=== PATIENT | female | born 1970 | race Caucasian/White ===

== ENCOUNTER → 2024-05-17 06:50 | Outpatient (REF) | payer OTHER, SELFPAY | LOC: HWRAD 06:50 | PROVIDERS: ATTENDING PHYSICIAN Nurse Practitioner Family; FAMILY PHYSICIAN Student in an Organized Health Care Education/Training Program | DX: E04.2 Nontoxic multinodular goiter (principal) | CPT/HCPCS: 76536 ==

== ENCOUNTER → 2024-08-16 16:31 | Outpatient (REF) | payer OTHER, SELFPAY | LOC: WDC 16:31 | PROVIDERS: ATTENDING PHYSICIAN Obstetrics & Gynecology; FAMILY PHYSICIAN Student in an Organized Health Care Education/Training Program | DX: Z12.31 Encounter for screening mammogram for malignant neoplasm of breast (principal) | CPT/HCPCS: 77063; 77067 ==

== ENCOUNTER → 2025-01-14 07:02 | Outpatient (REF) | payer OTHER, SELFPAY | LOC: PAVMRI 07:02 | PROVIDERS: ATTENDING PHYSICIAN Orthopaedic Surgery; FAMILY PHYSICIAN Student in an Organized Health Care Education/Training Program | DX: M25.521 Pain in right elbow (principal) | CPT/HCPCS: 73221 ==

== ENCOUNTER 2025-04-06 16:00 | Outpatient (RCR) | payer OTHER, SELFPAY | END 2025-04-06 19:51 | disposition home or self-care (01) | LOC: RPT 16:00 | PROVIDERS: ATTENDING PHYSICIAN Orthopaedic Surgery | DX: M25.521 Pain in right elbow (principal); Z73.6 Limitation of activities due to disability | CPT/HCPCS: 97110; 97140; 97162; 97530 ==

== ENCOUNTER 2025-05-02 17:07 | Outpatient (RCR) | payer OTHER, SELFPAY | END 2025-05-03 11:07 | disposition home or self-care (01) | LOC: RPT 17:07 | PROVIDERS: ATTENDING PHYSICIAN Orthopaedic Surgery | DX: M25.521 Pain in right elbow (principal); Z73.6 Limitation of activities due to disability; M62.81 Muscle weakness (generalized) | CPT/HCPCS: 97110; 97140 ==

== ENCOUNTER → 2025-05-13 13:02 | Outpatient (REF) | payer OTHER, SELFPAY | LOC: PAVMRI 13:02 | PROVIDERS: ATTENDING PHYSICIAN Orthopaedic Surgery Hand Surgery; FAMILY PHYSICIAN Family Medicine | DX: M25.511 Pain in right shoulder (principal) | CPT/HCPCS: 73221 ==

== ENCOUNTER 2025-07-25 17:56 | Emergency (ER) | payer OTHER, SELFPAY ==
[2025-07-25 18:01] VITALS: BP 157/93
[2025-07-25 18:24] LABS: Hematocrit 41.6 % (37.0-47.0); Hemoglobin 13.6 g/dL (12.0-16.0); Mean Corp Hgb Conc. 32.7 g/dL (33.0-37.0); Mean Corpuscular Volume 86.5 fL (81.0-99.0); Nucleated Red Blood Cells % 0 %; Platelet Count 249 10^3/uL (130-400); Red Cell Dist. Width 13.0 % (11.5-14.5)
[2025-07-25 18:46] LABS: ALT (SGPT) 14 U/L (0-35); AST (SGOT) 27 U/L (14-36); Albumin 4.6 g/dl (3.5-5.0); Alkaline Phosphatase 115 U/L (38-126); Blood Urea Nitrogen 22 mg/dl (7-17); Calcium 9.8 mg/dl (8.4-10.2); Carbon Dioxide 30 mmol/L (22-30); Chloride 101 mmol/L (98-107); Glucose 94 mg/dl (70-99); Potassium 4.4 mmol/L (3.5-5.1); Sodium 135 mmol/L (135-145); Total Protein 7.7 g/dl (6.3-8.2); eGFR > 60.00
[2025-07-25 19:00] LABS: Troponin I < 0.012 ng/ml
[2025-07-25 23:08] VITALS: BMI 29.1
[2025-07-25 23:18] VITALS: BP 138/78
[2025-07-26] VITALS: BP 127/72
[2025-07-26] MEDS: CARAFATE SUSPENSION 1 GM PO (00:35)
[2025-07-26] MEDS: NSS 1000 IV (00:40)
[2025-07-26 00:46] LABS: D-Dimer 0.56 ug/mlFEU (0.00-0.50)
[2025-07-26 00:59] LABS: Troponin I < 0.012 ng/ml
[2025-07-26 01:00] VITALS: BP 142/77
[2025-07-26 01:27] VITALS: BP 148/73
--- NOTE | 2025-07-26 03:05 | DOWNTIME ---
There was a [employer] Private Client Advisor Downtime on 07/26/2025 from 0100 to 07/26/2025 at 0255. Downtime documentation of patient's care, including medication administrations, has been reconciled in the electronic record per guidelines. Refer to the
patient's paper chart under the miscellaneous tab to see printed paper medication records and downtime forms.
--- NOTE | 2025-07-26 03:23 | ED.GENMED ---
History of Present Illness
General
Chief Complaint: Chest Pain
Source: patient
Exam Limitations: none
Time Seen by Provider: 07/25/25 23:30
Nursing documentation reviewed up to this point in time: agreed with
History of Present Illness
History of Present Illness:
Note:
CHIEF COMPLAINT(S)
Intermittent chest pain.
HISTORY OF PRESENT ILLNESS
The patient is a 55-year-old female who presents with complaints of intermittent chest pain. She describes the pain as internal, not associated with palpation, and not exacerbated by physical activity. The pain initially occurred last week,
subsided, but then recurred over the past couple of days. It does not disturb her sleep at night and is described as a constant sensation when it occurs. The patient denies any exacerbations with deep inspirations and has noted no specific triggers.
The patient initially suspected it might be heartburn, which she notes she has experienced for a few months, starting earlier in the summer. At present, she reports discomfort while laying down and having an empty stomach since lunchtime.
The patient has a family history of esophageal cancer in her father and a recent stroke at age 82. Her past workup for similar chest discomfort at an urgent care visit, including an electrocardiogram (EKG), was unremarkable.
PAST MEDICAL AND SURGICAL HISTORY
The patient reports no significant past medical or surgical history.
SOCIAL HISTORY
The patient denies smoking, excessive alcohol consumption, and illicit drug use. 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
MEDICATIONS
The patient reports no current medications taken on a daily basis.
PHYSICAL EXAM
General: Alert, no acute distress.
Skin: Warm, dry.
Head: Normocephalic, atraumatic.
Neck: Supple, trachea midline.
Eyes, Ears, Nose, Mouth, and Throat: Oral mucosa moist.
Cardiovascular: Normal peripheral perfusion, No edema.
Respiratory: Respirations are non-labored.
Gastrointestinal: Abdomen nondistended.
Back: Normal range of motion, Normal alignment.
Musculoskeletal: Normal range of motion, normal strength.
Neurological: Alert and oriented to person, place, time, and situation, No focal neurological deficit observed.
Psychiatric: Cooperative, appropriate mood & affect.
PROBLEM LIST
Acute: Intermittent chest pain
Chronic: None mentioned
PLAN
1. Repeat cardiac enzyme tests and EKG.
2. Perform D-Dimer test to rule out the possibility of a blood clot, with the understanding that a negative result indicates no clot while a positive result requires further evaluation.
3. Consider offering a gastrointestinal (GI) cocktail to the patient for symptomatic relief, with the caveat of potential masking of cardiac symptoms.
4. Based on the test outcomes, evaluate the possibility of discharging the patient if results are favorable.
DIFFERENTIAL DIAGNOSIS
The Differential Diagnosis includes, in no particular order and is not limited to:
1. Gastroesophageal reflux disease (GERD)
2. Anxiety or panic attack
3. Musculoskeletal chest pain
4. Costochondritis
5. Myocardial ischemia
6. Pulmonary embolism
7. Pericarditis
8. Peptic ulcer disease
9. Gallbladder disease
10. Esophageal spasm
Disposition:
SUMMARY OF ENCOUNTER
The patient is a 55-year-old female who presented with complaints of intermittent chest pain. The chest pain resolved upon arrival at the emergency department. A CT scan of the chest, specifically a pulmonary embolism (PE) study, was conducted and
returned negative. Cardiac enzyme tests (troponins) were also performed and were negative.
DISPOSITION
The patient is to be discharged home.
PLAN
1. As the CT scan for PE was negative, and the cardiac enzymes were negative, the likelihood of an acute life-threatening condition is low.
2. Discharge home with advice to follow up with her primary care provider for further evaluation of intermittent chest pain, potentially exploring gastrointestinal causes given her past symptoms.
INDEPENDENT REVIEW OF LABS AND INTERPRETATION OF TESTS
- My independent review of the CT chest with PE study shows no evidence of pulmonary embolism.
- My independent review of cardiac enzymes (troponins) indicates negative results.
FOLLOW-UP INSTRUCTIONS
Patient is advised to follow up with her primary care provider for further evaluation and management of chest pain, considering possible gastrointestinal sources.
MEDICAL DECISION MAKING
- Number and Complexity of Problems Addressed: Acute intermittent chest pain.
- Data:
- Category 1: My independent interpretation of the CT chest with PE study and cardiac enzyme tests.
- Risk: Consideration of Admission/Observation: Escalation of care including admission/observation was considered given the complexity and risk of the patients presenting complaint and exam findings. However, ultimately I feel the patient is safe
for outpatient management with close follow-up. Reasoning: Work-up reassuring, does not reveal any acute life/organ-threatening processes, patients symptoms well controlled upon reevaluation, reexamination is reassuring, vitals are stable, patient
agreeable with discharge, reliable for follow-up.
DIAGNOSIS
- Chest pain, unspecified (ICD-10 code R07.9)
Past History
Past History
ED Past Medical History: None
ED Past Surgical History: None
Social History
Tobacco: Non-smoker
Alcohol: None
Drug: None
Living: with family
Review of Systems
Review of Systems
Allergies reviewed?: Yes
All Other Systems: ROS reviewed and negative except as documented in HPI and ROS
Phy Exam
Physical Exam
Physical Exam:
.
Scores
Heart Score for Chest Pain Patients
STEMI patient?: No
History: Slightly or Non-Suspicious
ECG: Normal
Age: >45 - <65 years
Risk Factors: No Risk Factors
Troponin: </= Normal Limit
Heart Score for Chest Pain Patients: 1
Heart Score Risk: 2.5% MACE over next 6 weeks
Course
Orders/Labs/Results
Orders:
Orders
07/25/25 17:57
EKG [Electrocardiogram (*1)] Urgent
Reason for Study: Chest Pain
EKG- Treatment ONCE
07/25/25 18:12
Complete Blood Count/With Diff Urgent
Comprehensive Metabolic Panel Urgent
Troponin I Urgent
07/25/25 23:47
Sucralfate Suspension [Carafate Suspension] 1 gm PO NOW STA
07/25/25 23:48
D-Dimer Urgent
Troponin I Urgent
0.9% Sodium Chloride 1000 ml [Nss] 1,000 ml IV BOLUS
07/26/25 01:02
CT Chest PE Study Urgent
Comment:
Reason For Exam: elev ddimer, ep
Abnormal Lab Results
07/25/25 07/26/25
18: 00:30
MCHC 32.7 L g/dL
(33.0-37.0)
MPV 10.8 H fL
(7.4-10.4)
D-Dimer 0.56 H ug/mlFEU
(0.00-0.50)
BUN 22 H mg/dl
(7-17)
07/25/25 18:12
07/25/25 18:12
Vital Signs
Initial and Last Documented VS:
Initial Vital Signs
Temp Pulse Resp BP Pulse Ox
98.4 F 64 16 157/93 99
07/25/25 18:01 07/25/25 18:01 07/25/25 18:01 07/25/25 18:01 07/25/25 18:01
Last Documented Vital Signs
Temp Pulse Resp BP Pulse Ox
98.4 F 61 16 148/73 99
07/25/25 18:01 07/26/25 01:30 07/26/25 01:30 07/26/25 01:27 07/26/25 03:28
*Pulse Oximetry
SaO2: 99
Oxygen Mode of Delivery: Room air
Patient hypoxic: no
*Critical Care Note
Total Time (30-74mins, 75-104mins- exclusive of procedures): Not Applicable
Update Note
Update Note:
NAME: ALECIA MITTAL
DATE OF EXAM: 07/26/2025
Patient No: [id number]
Physician: DICKSON
Date of : 1970
Past Medical History (entered by Technologist): Patient to be discharged home.
ED Attending Note
-
Portions of this chart may have been created with voice recognition software.� Occasional wrong word or��sound alike� substitutions may have occurred due to the inherent limitations of voice recognition software.
Discharge Plan
Departure
Patient Disposition: Home (Routine Discharge)
Date of Disposition: 07/26/25
Time of Disposition: :
Patient with high blood pressure during this ER visit?: Yes
Condition: Good
Discharge Problem:
Chest pain
Instructions: Chest Pain CBC Follow Up, BLOOD PRESSURE
Prescriptions:
No Action
cephalexin 500 MG capsule
500 mg PO BID Qty: 14 0RF
cefdinir 300 mg capsule
300 mg PO BID Qty: 14 0RF
metronidazole 500 mg tablet
500 mg PO Q8H Qty: 20 0RF
fluconazole 150 mg tablet
150 mg PO ONCE Qty: 1 0RF
Referrals:
Carlotta Vasquez DO [Family Provider, Family Practice]
Activity Restrictions/Additional Instructions:
Thank You for choosing [facility].
It was a pleasure meeting you and taking part in your care. We hope for your continued healing and wellness.
Please read discharge instructions in their entirety. However, they are for general education and may not describe your exact diagnosis at discharge. Information on your ER visit and medical conditions were discussed with you along with appropriate
follow up information...
If indicated, please take your medications as instructed and indicated on discharge paperwork.
Please schedule a follow up appointment as directed. Call to schedule an appointment
Please return to the emergency department with ANY change in, persisting, or worsening of symptoms. If any of your symptoms do not improve, or persist, or become more severe within 6-12 hours, please return to the emergency department for further
care.
Please return to the emergency department if you develop a headache, neck pain/stiffness, fever greater than 100.4F, chest pain, shortness of breath, persistent nausea, vomiting, slurred speech, difficulty walking, numbness/tingling, weakness, signs
of infection or any other symptoms that are worrisome to you.
If you have any questions or concerns please do not hesitate to call the Hospital at .
Interventions
Interventions:
*Risk Screen - Suicide Last Done: 07/25/25 18:06
*General Assessment Last Done: 07/25/25 23:08
*Neglect/Abuse Screening Last Done: 07/25/25 18:06
*ED- Fall Risk Assessment Last Done: 07/25/25 23:08
*ED COVID-19 Vaccine History Last Done: 07/25/25 23:08
*ED Influenza Vaccine History Last Done: 07/25/25 23:08
ED- Cardiac Assessment Last Done: 07/25/25 23:08
Discharge Date and Time
Print Language: BELARUSIAN
[2025-07-26 03:33] VITALS: BP 156/80
== END 2025-07-26 03:39 | disposition home or self-care (01) ==
LOC: EMR 17:56
PROVIDERS: Student in an Organized Health Care Education/Training Program; EMERGENCY PHYSICIAN Student in an Organized Health Care Education/Training Program; FAMILY PHYSICIAN Family Medicine
DX: R07.9 Chest pain, unspecified (principal); R03.0 Elevated blood-pressure reading, without diagnosis of hypertension
CPT/HCPCS: 99284; 96360; 71275; 80053; 84484; 85025; 85379; 93005; Q9967

== ENCOUNTER → 2025-08-14 16:26 | Outpatient (REF) | payer OTHER, SELFPAY | LOC: RAD 16:26 | PROVIDERS: ATTENDING PHYSICIAN Physician Assistant; FAMILY PHYSICIAN Family Medicine | DX: E04.2 Nontoxic multinodular goiter (principal) | CPT/HCPCS: 76536 ==

== ENCOUNTER → 2025-08-17 16:22 | Outpatient (REF) | payer OTHER, SELFPAY | LOC: WDC 16:22 | PROVIDERS: ATTENDING PHYSICIAN Obstetrics & Gynecology | DX: Z12.31 Encounter for screening mammogram for malignant neoplasm of breast (principal) | CPT/HCPCS: 77063; 77067 ==